=== PATIENT | male | born 1995 | race Hispanic/Latino ===

== ENCOUNTER 2019-10-06 16:55 | Emergency (ER) | payer SELFPAY ==
[2019-10-06] MEDS ORDERED: TETANUS & DIPHTHERIA TOX,ADULT 0.5 ML VIAL ONE (17:18)
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
--- NOTE | 2019-10-06 18:51 | RAD REPORT ---
EXAM DESCRIPTION: RAD - Hand Right 3 View - 10/06/2019 6:23 pm CLINICAL HISTORY: Right hand pain status post injury FINDINGS: Comminuted fracture involves the 5th metacarpal neck with angulation present at fracture s ite. Mild displacement of fracture fragments. No dislocation
[2019-10-06 18:55] VITALS: BP 111/68; TEMP 98.2; O2SAT 98
== END 2019-10-06 18:47 | disposition home or self-care (01) ==
LOC: ER 16:55
PROC: 2W3CX1Z Immobilization of Right Lower Arm using Splint (ICD-10-PCS; principal; 2019-10-06)
DX: S62.336A Displaced fracture of neck of fifth metacarpal bone, right hand, initial encounter for closed fracture (principal); S60.511A Abrasion of right hand, initial encounter; W51.XXXA Accidental striking against or bumped into by another person, initial encounter; Y93.9 Activity, unspecified; Y92.9 Unspecified place or not applicable; Z91.018 Allergy to other foods
CPT/HCPCS: 90714; 99283

== ENCOUNTER 2019-10-29 20:31 | Emergency (ER) | payer SELFPAY ==
[2019-10-29] MEDS ORDERED: AMOX/K CLAV 875 MG TAB ONE (21:05)
--- NOTE | 2019-10-29 21:10 | ER ---
Nurse's Notes [facility] Name: Freedom Edmondson Age: 24 yrs Sex: Male : 1995 Arrival Date: 10/29/2019 Time: 20:33 Bed 8 Private MD: Diagnosis: Dental caries Presentation: 10/28 20:41 Chief complaint: Patient states: Pt reports his lower gums started hurting this AM. ea Coronavirus screen: Proceed with normal triage. Ebola Screen: No symptoms or risks identified at this time. Initial Sepsis Screen: Does the patient meet any 2 criteria? No. Patient's initial sepsis screen is negative. Does the patient have a suspected source of infection? No. Patient's initial sepsis screen is negative. Risk Assessment: Do you want to hurt yourself or someone else? Patient reports no desire to harm self or others. Onset of symptoms was October 29, 2019. 20:41 Method Of Arrival: Ambulatory ea 20:41 Acuity: PALMIRA 3 ea Historical: - Allergies: 20:44 Coconut; ea 20:44 NKDA; ea - PMHx: 20:44 Kidney stones; ea - PSHx: 20:44 None; ea - Immunization history:: Adult Immunizations up to date. - Social history:: Patient/guardian denies using alcohol, street drugs, The patient lives with spouse, Smoking status: Patient denies any tobacco usage or history of. - Family history:: not pertinent. Screenin:43 Abuse screen: Denies threats or abuse. Nutritional screening: No deficits noted. ea Tuberculosis screening: No symptoms or risk factors identified. Fall Risk None identified. Assessment: 20:44 General: Appears in no apparent distress. Behavior is appropriate for age. Pain: ea Complains of pain in lower left first bicuspid, lower left cuspid, lower left lateral incisor, lower left central incisor, lower right central incisor, lower right lateral incisor, lower right cuspid and lower right first bicuspid. Neuro: Level of Consciousness is awake, alert, obeys commands, Oriented to person, place, time. Respiratory: Airway is patent Respiratory effort is even, unlabored, Respiratory pattern is regular, symmetrical. Derm: Skin is pink, warm \T\ dry. Vital Signs: 20:41 BP 119 / 71; Pulse 78; Resp 18; Temp 98; Pulse Ox 98% ; Weight 61.23 kg; Height 5 ft. ea 10 in. (177.80 cm); 20:41 Body Mass Index 19.37 (61.23 kg, 177.80 cm) ea ED Course: 20:33 Patient arrived in ED. cl3 20:37 Candace Bautista MD is Attending Physician. ma2 20:43 Triage completed. ea 20:43 Patient has correct armband on for positive identification. Bed in low position. Call ea light in reach. 20:43 Arm band placed on right wrist. Patient placed in a hallway bed, on a stretcher, on ea pulse oximetry. 20:44 Ruth Jones, RN is Primary Nurse. ea 21:27 No provider procedures requiring assistance completed. Patient did not have IV access lp1 during this emergency room visit. Administered Medications: 21:02 Drug: Augmentin 875 mg Route: PO; sg Outcome: 21:10 Discharge ordered by . ma2 21:27 Discharged to home ambulatory. lp1 21:27 Condition: good 21:27 Discharge instructions given to patient, Instructed on discharge instructions, follow up and referral plans. medication usage, Demonstrated understanding of instructions, follow-up care, medications, Prescriptions given X 2. 21:28 Patient left the ED. lp1 Signatures: Jerome Diallo RN [place] Sharon Connors RN RN lp1 Ruth Jones, RN RN Candace Bautista MD MD ma2 Lewis, Charde cl3
--- NOTE | 2019-10-29 21:11 | EDPHYS ---
Physician Documentation [facility] Name: Freedom Edmondson Age: 24 yrs Sex: Male : 1995 Arrival Date: 10/29/2019 Time: 20:33 Bed 8 Private MD: ED Physician Candace Bautista HPI: 10/28 21:08 This 24 yrs old Male presents to ER via Ambulatory with complaints of Swollen ma2 Gums. 21:08 The patient presents with dental infection . Onset: The symptoms/episode began/occurred ma2 gradually, 3 day(s) ago. Associated signs and symptoms: Pertinent negatives: chills, dysphagia, nausea, redness in area, vomiting. Severity of symptoms: At their worst the symptoms were moderate, in the emergency department the symptoms are unchanged. The patient has not experienced similar symptoms in the past. Historical: - Allergies: 20:44 Coconut; ea 20:44 NKDA; ea - PMHx: 20:44 Kidney stones; ea - PSHx: 20:44 None; ea - Immunization history:: Adult Immunizations up to date. - Social history:: Patient/guardian denies using alcohol, street drugs, The patient lives with spouse, Smoking status: Patient denies any tobacco usage or history of. - Family history:: not pertinent. ROS: 21:08 Constitutional: Negative for fever, chills, and weight loss. ma2 21:08 All other systems are negative. Exam: 21:08 Constitutional: This is a well developed, well nourished patient who is awake, alert, ma2 and in no acute distress. Head/Face: Normocephalic, atraumatic. Eyes: Pupils equal round and reactive to light, extra-ocular motions intact. Lids and lashes normal. Conjunctiva and sclera are non-icteric and not injected. Cornea within normal limits. Periorbital areas with no swelling, redness, or edema. ENT: dental infections, otherwsie Nares patent. No nasal discharge, no septal abnormalities noted. Tympanic membranes are normal and external auditory canals are clear. Oropharynx with no redness, swelling, or masses, exudates, or evidence of obstruction, uvula midline. Mucous membranes moist. Neck: Trachea midline, no thyromegaly or masses palpated, and no cervical lymphadenopathy. Supple, full range of motion without nuchal rigidity, or vertebral point tenderness. No Meningismus. Chest/axilla: Normal chest wall appearance and motion. Nontender with no deformity. No lesions are appreciated. Cardiovascular: Regular rate and rhythm with a normal S1 and S2. No gallops, murmurs, or rubs. Normal PMI, no JVD. No pulse deficits. Respiratory: Lungs have equal breath sounds bilaterally, clear to auscultation and percussion. No rales, rhonchi or wheezes noted. No increased work of breathing, no retractions or nasal flaring. Vital Signs: 20:41 BP 119 / 71; Pulse 78; Resp 18; Temp 98; Pulse Ox 98% ; Weight 61.23 kg; Height 5 ft. ea 10 in. (177.80 cm); 20:41 Body Mass Index 19.37 (61.23 kg, 177.80 cm) ea MDM: 20:38 Patient medically screened. ma2 21:08 Differential diagnosis: dental caries, gingivitis, dental abscess, pericoronitis. Data ma2 reviewed: vital signs, nurses notes. Counseling: I had a detailed discussion with the patient and/or guardian regarding: the historical points, exam findings, and any diagnostic results supporting the discharge/admit diagnosis, the presence of at least one elevated blood pressure reading (>120/80) during this emergency department visit, the need for outpatient follow up. Response to treatment: the patient's symptoms have markedly improved after treatment. Administered Medications: 21:02 Drug: Augmentin 875 mg Route: PO; sg Disposition: 10/29/19 21:10 Discharged to Home. Impression: Dental caries. - Condition is Stable. - Discharge Instructions: Dental Pain. - Prescriptions for Augmentin 875- 125 mg Oral Tablet - take 1 tablet by ORAL route every 12 hours for 10 days; 20 tablet. Diclofenac Sodium 75 mg Oral Tablet Sustained Release - take 1 tablet by ORAL route 2 times per day; 30 tablet. - Work release form, Medication Reconciliation Form, Thank You Letter, Antibiotic Education, Prescription Opioid Use form. - Follow up: Private Physician; When: Tomorrow; Reason: Recheck today's complaints, Continuance of care. Signatures: Jerome Diallo RN RN Sharon Connors RN RN lp1 Jones, Ruth, Candace Martínez RN, ea, MD MD ma2 Corrections: (The following items were deleted from the chart) 21:28 21:10 10/29/2019 21:10 Discharged to Home. Impression: Dental caries. Condition is lp1 Stable. Forms are Medication Reconciliation Form, Thank You Letter, Antibiotic Education, Prescription Opioid Use. Follow up: Private Physician; When: Tomorrow; Reason: Recheck today's complaints, Continuance of care. ma2
[2019-10-29 21:34] VITALS: BP 119/71; TEMP 98; O2SAT 98
== END 2019-10-29 21:28 | disposition home or self-care (01) ==
LOC: ER 20:31
DX: K02.9 Dental caries, unspecified (principal); Z91.018 Allergy to other foods; Z87.442 Personal history of urinary calculi